=== PATIENT | male | born 1950 | race Caucasian/White ===

== ENCOUNTER 2016-06-22 14:40 | Inpatient (IN) | payer MEDICARE, OTHER ==
[2016-06-22] MEDS ORDERED: ALBUTEROL SULFATE 2.5 MG/3 ML VIAL.NEB IH ONE (14:54)
[2016-06-22 15:24] LABS: Hematocrit 43.8 % (42.0-52.0); Hemoglobin 14.2 gm/dL (13.5-18.0); Mean Cell Volume 92.8 fl (78-100); Mean Corpuscular Hemoglobin 30.1 pg (27-31); Mean Corpuscular Hgb Conc 32.4 g/dl (32-36); Mean Platelet Volume 9.4 fl (6.0-9.5); Neutrophil # 6.7 K/mm3 (1.3-6.0); Neutrophil % 75.3 % (42-75.0); Platelet Count 235 K/mm3 (150-450); Red Blood Count 4.72 M/mm3 (4.7-6.0); Red Cell Distribution Width 15.3 % (11.5-14.0); White Blood Count 8.8 K/mm3 (4.0-10.5)
[2016-06-22] MEDS ORDERED: ALBUTEROL SULFATE 2.5 MG/0.5 ML VIAL.NEB IH ONE (15:40)
[2016-06-22 15:46] LABS: ALT 16 U/L (19-67); AST 16 U/L (0-48); Albumin * 2.7 gm/dl (3.4-5.0); Alkaline Phosphatase * 200 U/L (50-170); Anion Gap 11.2 mmol/L (6.8-13.8); BNP * 1955 pg/mL (5-350); BUN/Creatinine Ratio 15.2 (9.0-21.6); Bilirubin, Total 0.7 mg/dL (0.0-1.1); Blood Urea Nitrogen 12 mg/dL (6-23); Ca. Corrected For Albumin 9.6 mg/dL (8.4-10.2); Calcium * 8.9 mg/dL (7.9-10.9); Carbon Dioxide 33.7 mmol/L (24-32.6); Chloride 104 mmol/L (97-106); Digoxin 1.1 ng/mL (0.5-2.0); Glucose * 98 mg/dL (70-110); Potassium 3.9 mmol/L (3.4-4.6); Sodium 145 mmol/L (132-142); Total Protein 6.7 gm/dL (6.2-8.2)
[2016-06-22 15:47] LABS: Troponin I Less than 0.017 ng/ml (0.00-0.10)
[2016-06-22] MEDS ORDERED: ENOXAPARIN SODIUM 100 MG/ML SYRG SC ONE ×2 (15:51→16:20)
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
[2016-06-22] MEDS ORDERED: FUROSEMIDE 10 MG/ML VIAL IV ONE (16:00)
[2016-06-22] MEDS ORDERED: FUROSEMIDE 10 MG/ML VIAL ONE (16:20)
[2016-06-22] MEDS ORDERED: AZITHROMYCIN 500 MG in DEXTROSE 5 % IN WATER 250 ML IV ONE ×2 (16:30)
[2016-06-22] MEDS ORDERED: ACETAMINOPHEN 325 MG TABLET PO PRN (18:09)
[2016-06-22] MEDS ORDERED: POLYETHYLENE GLYCOL 3350 119 GM BTL PO PRN (18:15)
[2016-06-22] MEDS ORDERED: ERGOCALCIFEROL 50000 UNIT TABLET PO SCH (18:15)
[2016-06-22] MEDS ORDERED: ALBUTEROL SULFATE 60 PUFF INHALER IH PRN (18:27)
[2016-06-22] MEDS ORDERED: oxyCODONE HCL/ACETAMINOPHEN 1 TAB TABLET PO PRN (18:35)
[2016-06-22] MEDS ORDERED: oxyCODONE HCL 5 MG TABLET PO PRN (18:36)
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
[2016-06-22] MEDS ORDERED: FUROSEMIDE 10 MG/ML VIAL IV SCH (21:00)
[2016-06-22] MEDS ORDERED: DIGOXIN 0.125 MG TABLET ONE (21:05)
[2016-06-22] MEDS: METOPROLOL TARTRATE 50 MG TABLET PO SCH (21:14)
[2016-06-22] MEDS: FAMOTIDINE 20 MG TABLET PO SCH (21:14)
[2016-06-22] MEDS: DOCUSATE SODIUM 100 MG CAPSULE PO SCH (21:15)
[2016-06-22] MEDS: SENNOSIDES/DOCUSATE SODIUM 1 TAB TABLET PO SCH (21:15)
[2016-06-22] MEDS: DIGOXIN 0.25 MG TABLET PO SCH (21:15)
[2016-06-22] MEDS: DILTIAZEM HCL 60 MG TABLET PO SCH (21:15)
[2016-06-23] MEDS: DILTIAZEM HCL 60 MG TABLET PO SCH ×2 (05:19→13:55)
[2016-06-23] MEDS ORDERED: ENOXAPARIN SODIUM 40 MG/0.4 ML SYRG SC ONE (05:47)
[2016-06-23 05:54] LABS: Hematocrit 43.2 % (42.0-52.0); Hemoglobin 14.2 gm/dL (13.5-18.0); Mean Cell Volume 92.3 fl (78-100); Mean Corpuscular Hemoglobin 30.3 pg (27-31); Mean Corpuscular Hgb Conc 32.9 g/dl (32-36); Mean Platelet Volume 9.5 fl (6.0-9.5); Neutrophil # 5.5 K/mm3 (1.3-6.0); Neutrophil % 70.4 % (42-75.0); Platelet Count 226 K/mm3 (150-450); Red Blood Count 4.68 M/mm3 (4.7-6.0); Red Cell Distribution Width 15.2 % (11.5-14.0); White Blood Count 7.8 K/mm3 (4.0-10.5)
[2016-06-23] MEDS ORDERED: ENOXAPARIN SODIUM 100 MG/ML SYRG SC SCH (06:00)
[2016-06-23 06:24] LABS: Albumin * 2.7 gm/dl (3.4-5.0); Anion Gap 7.5 mmol/L (6.8-13.8); BUN/Creatinine Ratio 11.9 (9.0-21.6); Bilirubin, Total 0.7 mg/dL (0.0-1.1); Ca. Corrected For Albumin 9.5 mg/dL (8.4-10.2); Calcium * 8.8 mg/dL (7.9-10.9); Carbon Dioxide 38.7 mmol/L (24-32.6); Potassium 3.2 mmol/L (3.4-4.6); T4 Free * 1.32 ng/dL (0.76-1.46); TSH * 0.648 uIU/mL (0.358-3.74); Total Protein 6.6 gm/dL (6.2-8.2)
[2016-06-23] MEDS ORDERED: ALBUTEROL SULFATE 2.5 MG/3 ML VIAL.NEB IH PRN (06:38)
[2016-06-23 07:35] LABS: Prothrombin Time (Patient) 11.1 Seconds (9.4-11.4)
[2016-06-23 08:01] LABS: INR 1.07 INR (0.90-1.10)
[2016-06-23] MEDS ORDERED: FLUTICASONE PROPIONATE 120 SPRAY INHALER NS SCH (09:00)
[2016-06-23] MEDS: TAMSULOSIN HCL 0.4 MG CAP.SR.24H PO SCH (09:36)
[2016-06-23] MEDS: DOCUSATE SODIUM 100 MG CAPSULE PO SCH ×2 (09:36→20:09)
[2016-06-23] MEDS: SENNOSIDES/DOCUSATE SODIUM 1 TAB TABLET PO SCH ×2 (09:37→20:10)
[2016-06-23] MEDS: FUROSEMIDE 10 MG/ML VIAL IV SCH ×2 (09:37→20:09)
[2016-06-23] MEDS: MAGNESIUM HYDROXIDE 30 ML UDC PO SCH (09:37)
[2016-06-23] MEDS: FAMOTIDINE 20 MG TABLET PO SCH ×2 (09:37→20:10)
[2016-06-23] MEDS: METOPROLOL TARTRATE 50 MG TABLET PO SCH ×2 (09:37→19:15)
[2016-06-23] MEDS: AZITHROMYCIN 250 MG TABLET PO SCH (09:38)
[2016-06-23] MEDS: POTASSIUM CHLORIDE 10 MEQ TABLET.SA PO SCH ×2 (10:45→20:09)
[2016-06-23] MEDS: WARFARIN SODIUM 5 MG TABLET PO SCH (16:01)
--- NOTE | 2016-06-23 18:34 | PN ---
Subjective - Date and Time Seen Date: 06/23/16 Time: 18:31 Subjective Narrative: SOB still present, somewhat better. No pain at present. Family brought in fast food today. echo pending. Objective - Review of Systems Generalized/Overall Review: Reports: Malaise EENTM: Reports: No Symptoms Reported Respiratory: Reports: Cough, Shortness of Breath Cardiac: Reports: No Symptoms Reported Abdominal: Reports: Other - incontinent of loose stool today. Genitourinary Symptoms: Reports: No Symptoms Reported Musculoskeletal Complaints: Reports: No Symptoms Reported Neurological: Reports: No Symptoms Reported Skin: Reports: No Symptoms Reported Endocrine: Reports: No Symptoms Reported Misc: All systems neg except as marked - Vitals Vitals: Last Vital Signs Selected Entries 06/23/16 14:17 Temperature 36.7 C Temperature Temporal Artery Source Scan Pulse Rate 93 Respiratory 20 Rate Blood Pressure 139/83 Blood Pressure Sitting Position O2 Sat by Pulse 91 Oximetry Oxygen Delivery Nasal Cannula Method Oxygen Flow 3 Rate - Abnormal Lab Findings Abnormal Lab Findings: Abnormal Lab Results 06/23/16 06/23/16 Range/Units 05:50 05:50 RBC 4.68 L (4.7-6.0) M/mm3 RDW 15.2 H (11.5-14.0) % Lymphocytes % 16.1 L (20-51) % Monocytes % 9.4 H (0.0-9) % Eosinophils % 3.2 H (0.0-3.0) % Lymphocytes # 1.3 L (1.5-3.5) k/mm3 Sodium 144 H (132-142) mmol/L Plasma Sodium 144 H (130-142) mmol/L Potassium 3.2 L (3.4-4.6) mmol/L Carbon Dioxide 38.7 H (24-32.6) mmol/L ALT 15 L (19-67) U/L Alkaline Phosphatase 188 H (50-170) U/L Albumin 2.7 L (3.4-5.0) gm/dl - Exam Constitutional: Present: Alert, Oriented x3, Cooperative, Well developed, Mild distress, Morbidly obese ENT Exam: Present: normal ENT inspection Neck: Present: normal inspection Respiratory: Present: rales Cardiovascular/Chest: Present: no murmur, irregularly irregular Abdomen: Present: Normal bowel sounds, soft, nontender, nondistended, no rebound tenderness, no hepatospenomegaly, no masses, obese Extremity: Present: pedal edema Skin Exam: Present: normal color, warm/dry, no cyanosis Neurologic: Present: alert, oriented x 3 Appearance: Present: appropriate appearance, neat Eye contact: Present: cooperative Assessment/Plan Plan Narrative: Follow Labs. Minimental exam. Lead Project Manager consult. Await echo. IV lasix. Coumadin. Iv antibiotics. Adjust med.s - Problems/Diagnosis (1) Pneumonia Problem: Suspected Qualifiers: Pneumonia type: due to unspecified organism Laterality: unspecified laterality Lung location: lower lobe of lung Qualified Code(s): J18.1 - Lobar pneumonia, unspecified organism (2) ERAN (obstructive sleep apnea) Problem: Chronic (3) Morbid obesity Problem: Chronic Qualifiers: Obesity type: due to excess calories Qualified Code(s): E66.01 - Morbid ( severe) obesity due to excess calories (4) TBI (traumatic brain injury) Problem: Chronic Qualifiers: Encounter type: subsequent encounter (5) Gallstone Problem: Chronic Qualifiers: Cholecystitis presence: without cholecystitis Biliary obstruction: without biliary obstruction Qualified Code(s): K80.20 - Calculus of gallbladder without cholecystitis without obstruction (6) Diabetes mellitus type 2 in obese Problem: Acute (7) Atrial fibrillation Problem: Chronic Qualifiers: Atrial fibrillation type: chronic Qualified Code(s): I48.2 - Chronic atrial fibrillation (8) CHF (congestive heart failure) Problem: Acute Qualifiers: Congestive heart failure type: unspecified congestive heart failure type Congestive heart failure chronicity: acute on chronic Qualified Code(s): I50.9 - Heart failure, unspecified (9) Dyspnea Problem: Acute Qualifiers: Dyspnea type: shortness of breath Qualified Code(s): R06.02 - Shortness of breath (10) Hypoxemia Problem: Acute (11) Pleural condition, unspecified Problem: Acute
[2016-06-23] MEDS: ENOXAPARIN SODIUM SC SCH ×2 (19:13)
[2016-06-23] MEDS: DIGOXIN 0.25 MG TABLET PO SCH (20:09)
[2016-06-24] MEDS: ENOXAPARIN SODIUM SC SCH ×4 (05:03→18:30)
[2016-06-24 06:24] LABS: Anion Gap 7.6 mmol/L (6.8-13.8); BUN/Creatinine Ratio 10.8 (9.0-21.6); Calcium * 8.9 mg/dL (7.9-10.9); Carbon Dioxide 39.5 mmol/L (24-32.6); Estimated Creat Clear 100.3; Hemoglobin 15.2 gm/dL (13.5-18.0); Mean Cell Volume 93.6 fl (78-100); Mean Corpuscular Hemoglobin 29.6 pg (27-31); Mean Corpuscular Hgb Conc 31.7 g/dl (32-36); Mean Platelet Volume 9.8 fl (6.0-9.5); Neutrophil # 5.2 K/mm3 (1.3-6.0); Neutrophil % 68.2 % (42-75.0); Platelet Count 231 K/mm3 (150-450); Potassium 3.1 mmol/L (3.4-4.6); Prothrombin Time (Patient) 12.2 Seconds (9.4-11.4); Red Blood Count 5.13 M/mm3 (4.7-6.0); White Blood Count 7.6 K/mm3 (4.0-10.5)
[2016-06-24 06:27] LABS: INR 1.17 INR (0.90-1.10)
[2016-06-24] MEDS: METOPROLOL TARTRATE 50 MG TABLET PO SCH (07:10)
[2016-06-24] MEDS ORDERED: POLYETHYLENE GLYCOL 3350 119 GM BTL PO PRN (09:00)
[2016-06-24] MEDS: DOCUSATE SODIUM 100 MG CAPSULE PO SCH ×2 (10:04→20:15)
[2016-06-24] MEDS: TAMSULOSIN HCL 0.4 MG CAP.SR.24H PO SCH (10:05)
[2016-06-24] MEDS: POTASSIUM CHLORIDE 20 MEQ TABLET.SA PO SCH ×2 (10:05→20:15)
[2016-06-24] MEDS: FLUTICASONE PROPIONATE 120 SPRAY INHALER NS SCH (10:05)
[2016-06-24] MEDS: FAMOTIDINE 20 MG TABLET PO SCH ×2 (10:06→20:15)
[2016-06-24] MEDS: MAGNESIUM HYDROXIDE 30 ML UDC PO SCH (10:06)
[2016-06-24] MEDS: FUROSEMIDE 10 MG/ML VIAL IV SCH (10:06)
[2016-06-24] MEDS: AZITHROMYCIN 250 MG TABLET PO SCH (10:07)
[2016-06-24] MEDS: SENNOSIDES/DOCUSATE SODIUM 1 TAB TABLET PO SCH ×2 (10:07→20:15)
[2016-06-24] MEDS ORDERED: diphenhydrAMINE HCL 25 MG CAPSULE PO PRN (10:40)
[2016-06-24] MEDS: diphenhydrAMINE HCL 50 MG CAPSULE PO PRN ×2 (10:48→23:59)
[2016-06-24] MEDS ORDERED: HYDROcodone/ACETAMINOPHEN 1 EACH TABLET PO PRN (10:55)
--- NOTE | 2016-06-24 11:28 | PN ---
Subjective - Date and Time Seen Date: 06/24/16 Time: 11:23 Subjective Narrative: SOB still present, somewhat better. No pain at present. Says he briefly passes out almost every time his head approaches the pillow when lying down. Vague and confusing historian. Objective - Review of Systems Generalized/Overall Review: Reports: Malaise EENTM: Reports: No Symptoms Reported Respiratory: Reports: Shortness of Breath Cardiac: Reports: No Symptoms Reported Abdominal: Reports: No Symptoms Reported Genitourinary Symptoms: Reports: No Symptoms Reported Musculoskeletal Complaints: Reports: No Symptoms Reported Neurological: Reports: Pre-existing Deficit Skin: Reports: No Symptoms Reported Endocrine: Reports: No Symptoms Reported Misc: All systems neg except as marked - Vitals Vitals: Last Vital Signs Selected Entries 06/24/16 06/24/16 06/24/16 06:22 07:10 10:06 Temperature 36.6 C Temperature Temporal Artery Source Scan Pulse Rate 70 70 70 Respiratory 18 Rate Blood Pressure 128/72 128/72 128/72 Blood Pressure Supine Position O2 Sat by Pulse 93 Oximetry Oxygen Delivery Bi-pap Method - Abnormal Lab Findings Abnormal Lab Findings: Abnormal Lab Results 06/24/16 06/24/16 06/24/16 Range/Units 05:40 05:40 05:40 MCHC 31.7 L (32-36) g/dl RDW 15.0 H (11.5-14.0) % MPV 9.8 H (6.0-9.5) fl Lymphocytes % 17.6 L (20-51) % Eosinophils % 4.5 H (0.0-3.0) % Lymphocytes # 1.3 L (1.5-3.5) k/mm3 PT 12.2 H (9.4-11.4) Seconds INR (Anticoag Therapy) 1.17 H (0.90-1.10) INR Sodium 144 H (132-142) mmol/L Plasma Sodium 144 H (130-142) mmol/L Potassium 3.1 L (3.4-4.6) mmol/L Carbon Dioxide 39.5 H (24-32.6) mmol/L - Exam Constitutional: Present: Alert, Cooperative, Well developed, No distress, Obese ENT Exam: Present: normal ENT inspection Neck: Present: normal inspection Respiratory: Present: no respiratory distress, rales Cardiovascular/Chest: Present: no murmur, irregularly irregular Abdomen: Present: Normal bowel sounds, soft, nontender, nondistended, no rebound tenderness, no hepatospenomegaly, no masses, obese Extremity: Present: pedal edema Skin Exam: Present: no cyanosis, cool/dry Neurologic: Present: alert Appearance: Present: appropriate appearance, neat Eye contact: Present: cooperative Assessment/Plan Plan Narrative: PT OT await echo. Head CT repeat. Mini mental status repeat. IV lasix. monitor electrolytes. - Problems/Diagnosis (1) Pneumonia Problem: Suspected Qualifiers: Pneumonia type: due to unspecified organism Laterality: unspecified laterality Lung location: lower lobe of lung Qualified Code(s): J18.1 - Lobar pneumonia, unspecified organism (2) ERAN (obstructive sleep apnea) Problem: Chronic (3) Morbid obesity Problem: Chronic Qualifiers: Obesity type: due to excess calories Qualified Code(s): E66.01 - Morbid ( severe) obesity due to excess calories (4) TBI (traumatic brain injury) Problem: Chronic Qualifiers: Encounter type: subsequent encounter (5) Gallstone Problem: Chronic Qualifiers: Cholecystitis presence: without cholecystitis Biliary obstruction: without biliary obstruction Qualified Code(s): K80.20 - Calculus of gallbladder without cholecystitis without obstruction (6) Diabetes mellitus type 2 in obese Problem: Acute (7) Atrial fibrillation Problem: Chronic Qualifiers: Atrial fibrillation type: chronic Qualified Code(s): I48.2 - Chronic atrial fibrillation (8) CHF (congestive heart failure) Problem: Acute Qualifiers: Congestive heart failure type: unspecified congestive heart failure type Congestive heart failure chronicity: acute on chronic Qualified Code(s): I50.9 - Heart failure, unspecified (9) Dyspnea Problem: Acute Qualifiers: Dyspnea type: shortness of breath Qualified Code(s): R06.02 - Shortness of breath (10) Hypoxemia Problem: Acute (11) Pleural condition, unspecified Problem: Acute (12) Dementia Problem: Acute Qualifiers: Dementia behavioral disturbance: without behavioral disturbance
[2016-06-24] MEDS ORDERED: FUROSEMIDE 10 MG/ML VIAL IV SCH (11:30)
--- NOTE | 2016-06-24 14:45 | ECHO ---
This report is available in the EMR
[2016-06-24] MEDS: WARFARIN SODIUM 5 MG TABLET PO SCH (16:31)
[2016-06-24] MEDS ORDERED: ERGOCALCIFEROL 50000 UNIT TABLET PO SCH (18:00)
[2016-06-24] MEDS: METOPROLOL TARTRATE 100 MG TABLET PO SCH (18:36)
[2016-06-24] MEDS: DIGOXIN 0.25 MG TABLET PO SCH (20:15)
[2016-06-24] MEDS: HYDROcodone/ACETAMINOPHEN 1 EACH TABLET PO PRN (20:19)
[2016-06-25] MEDS: ENOXAPARIN SODIUM SC SCH ×4 (05:04→17:23)
[2016-06-25 06:23] LABS: Hematocrit 49.2 % (42.0-52.0); Hemoglobin 15.8 gm/dL (13.5-18.0); Mean Cell Volume 92.8 fl (78-100); Mean Corpuscular Hemoglobin 29.8 pg (27-31); Mean Corpuscular Hgb Conc 32.1 g/dl (32-36); Mean Platelet Volume 9.3 fl (6.0-9.5); Neutrophil # 4.5 K/mm3 (1.3-6.0); Neutrophil % 65.2 % (42-75.0); Platelet Count 229 K/mm3 (150-450); Red Cell Distribution Width 14.8 % (11.5-14.0); White Blood Count 6.9 K/mm3 (4.0-10.5)
[2016-06-25 06:24] LABS: Prothrombin Time (Patient) 14.3 Seconds (9.4-11.4)
[2016-06-25 06:25] LABS: INR 1.38 INR (0.90-1.10)
[2016-06-25 06:27] LABS: Anion Gap 8.9 mmol/L (6.8-13.8); BUN/Creatinine Ratio 12.5 (9.0-21.6); Carbon Dioxide 37.4 mmol/L (24-32.6); Estimated Creat Clear 94.6; Potassium 3.3 mmol/L (3.4-4.6)
[2016-06-25] MEDS: METOPROLOL TARTRATE 100 MG TABLET PO SCH ×2 (06:46→18:18)
[2016-06-25] MEDS: DOCUSATE SODIUM 100 MG CAPSULE PO SCH ×2 (08:48→20:27)
[2016-06-25] MEDS: FLUTICASONE PROPIONATE 120 SPRAY INHALER NS SCH (08:48)
[2016-06-25] MEDS: POTASSIUM CHLORIDE 20 MEQ TABLET.SA PO SCH ×2 (08:49→20:27)
[2016-06-25] MEDS: AZITHROMYCIN 250 MG TABLET PO SCH (08:50)
[2016-06-25] MEDS: TAMSULOSIN HCL 0.4 MG CAP.SR.24H PO SCH (08:50)
[2016-06-25] MEDS: FAMOTIDINE 20 MG TABLET PO SCH ×2 (08:50→20:27)
[2016-06-25] MEDS: MAGNESIUM HYDROXIDE 30 ML UDC PO SCH (08:51)
[2016-06-25] MEDS: SENNOSIDES/DOCUSATE SODIUM 1 TAB TABLET PO SCH ×2 (08:52→20:27)
[2016-06-25] MEDS: FUROSEMIDE 10 MG/ML VIAL IV SCH (08:55)
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
[2016-06-25] MEDS: WARFARIN SODIUM 5 MG TABLET PO SCH (16:56)
[2016-06-25] MEDS ORDERED: MECLIZINE HCL 25 MG TABLET PO PRN (18:48)
[2016-06-25] MEDS: HYDROcodone/ACETAMINOPHEN 1 EACH TABLET PO PRN (20:26)
[2016-06-25] MEDS: DIGOXIN 0.25 MG TABLET PO SCH (20:27)
[2016-06-26 04:31] LABS: Anion Gap 8.3 mmol/L (6.8-13.8); BUN/Creatinine Ratio 16.7 (9.0-21.6); Calcium * 8.9 mg/dL (7.9-10.9); Carbon Dioxide 38.2 mmol/L (24-32.6); Estimated Creat Clear 92.5; Potassium 3.5 mmol/L (3.4-4.6)
[2016-06-26 04:33] LABS: Prothrombin Time (Patient) 16.7 Seconds (9.4-11.4)
[2016-06-26 04:36] LABS: INR 1.61 INR (0.90-1.10)
[2016-06-26] MEDS: ENOXAPARIN SODIUM SC SCH ×4 (05:04→17:14)
[2016-06-26] MEDS: METOPROLOL TARTRATE 100 MG TABLET PO SCH ×2 (06:21→18:28)
[2016-06-26] MEDS: SENNOSIDES/DOCUSATE SODIUM 1 TAB TABLET PO SCH ×2 (08:35→20:01)
[2016-06-26] MEDS: DOCUSATE SODIUM 100 MG CAPSULE PO SCH ×2 (08:35→20:00)
[2016-06-26] MEDS: MAGNESIUM HYDROXIDE 30 ML UDC PO SCH (08:35)
[2016-06-26] MEDS: FLUTICASONE PROPIONATE 120 SPRAY INHALER NS SCH (08:38)
[2016-06-26] MEDS: POTASSIUM CHLORIDE 20 MEQ TABLET.SA PO SCH ×2 (08:38→20:01)
[2016-06-26] MEDS: TAMSULOSIN HCL 0.4 MG CAP.SR.24H PO SCH (08:39)
[2016-06-26] MEDS: FUROSEMIDE 10 MG/ML VIAL IV SCH (08:39)
[2016-06-26] MEDS: FAMOTIDINE 20 MG TABLET PO SCH ×2 (08:39→20:00)
[2016-06-26] MEDS: AZITHROMYCIN 250 MG TABLET PO SCH (08:39)
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
[2016-06-26] MEDS: WARFARIN SODIUM 5 MG TABLET PO SCH (17:13)
[2016-06-26] MEDS: HYDROcodone/ACETAMINOPHEN 1 EACH TABLET PO PRN (19:09)
[2016-06-26] MEDS: DIGOXIN 0.25 MG TABLET PO SCH (20:00)
[2016-06-27] MEDS: HYDROcodone/ACETAMINOPHEN 1 EACH TABLET PO PRN ×2 (01:38→18:01)
[2016-06-27] MEDS: ENOXAPARIN SODIUM SC SCH ×4 (05:12→17:57)
[2016-06-27 06:02] LABS: Prothrombin Time (Patient) 22.3 Seconds (9.4-11.4)
[2016-06-27 06:13] LABS: INR 2.14 INR (0.90-1.10)
[2016-06-27] MEDS: METOPROLOL TARTRATE 100 MG TABLET PO SCH ×2 (07:26→18:08)
[2016-06-27] MEDS: DOCUSATE SODIUM 100 MG CAPSULE PO SCH ×2 (08:35→21:18)
[2016-06-27] MEDS: MAGNESIUM HYDROXIDE 30 ML UDC PO SCH (08:36)
[2016-06-27] MEDS: FLUTICASONE PROPIONATE 120 SPRAY INHALER NS SCH (08:36)
[2016-06-27] MEDS: SENNOSIDES/DOCUSATE SODIUM 1 TAB TABLET PO SCH ×2 (08:36→21:19)
[2016-06-27] MEDS: TAMSULOSIN HCL 0.4 MG CAP.SR.24H PO SCH (08:37)
[2016-06-27] MEDS: FAMOTIDINE 20 MG TABLET PO SCH ×2 (08:37→21:18)
[2016-06-27] MEDS: POTASSIUM CHLORIDE 20 MEQ TABLET.SA PO SCH ×2 (08:37→21:18)
[2016-06-27] MEDS: FUROSEMIDE 10 MG/ML VIAL IV SCH (08:50)
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
--- NOTE | 2016-06-27 14:09 | PN ---
Progess Note - Interim Narrative: 06/27/16 14:06 Actually, BMI was 40.1 on ADMISSION, so he was in fact morbidly obese by definition on admission. He has since lost 11.5 kg since here, so he is now 129.5 kg and is no longer morbidly obese, just obese.
[2016-06-27] MEDS: WARFARIN SODIUM 5 MG TABLET PO SCH (16:49)
[2016-06-27] MEDS: DIGOXIN 0.25 MG TABLET PO SCH (21:19)
[2016-06-28] MEDS: ENOXAPARIN SODIUM SC SCH ×2 (05:49)
[2016-06-28 06:13] LABS: Prothrombin Time (Patient) 21.4 Seconds (9.4-11.4)
[2016-06-28 06:14] LABS: INR 2.06 INR (0.90-1.10)
[2016-06-28] MEDS: METOPROLOL TARTRATE 100 MG TABLET PO SCH (08:00)
[2016-06-28] MEDS: DOCUSATE SODIUM 100 MG CAPSULE PO SCH (09:24)
[2016-06-28] MEDS: SENNOSIDES/DOCUSATE SODIUM 1 TAB TABLET PO SCH (09:26)
[2016-06-28] MEDS: MAGNESIUM HYDROXIDE 30 ML UDC PO SCH (09:27)
[2016-06-28] MEDS: FAMOTIDINE 20 MG TABLET PO SCH (09:30)
[2016-06-28] MEDS: POTASSIUM CHLORIDE 20 MEQ TABLET.SA PO SCH (09:30)
[2016-06-28] MEDS: FLUTICASONE PROPIONATE 120 SPRAY INHALER NS SCH (09:30)
[2016-06-28] MEDS: TAMSULOSIN HCL 0.4 MG CAP.SR.24H PO SCH (09:30)
[2016-06-28] MEDS: FUROSEMIDE 10 MG/ML VIAL IV SCH (09:30)
[2016-06-28 13:16] LABS: Anion Gap 8.3 mmol/L (6.8-13.8); Carbon Dioxide 37.8 mmol/L (24-32.6); Estimated Creat Clear 93.5; Potassium 4.1 mmol/L (3.4-4.6)
[2016-06-28 15:40] VITALS: BP 144/86
[2016-06-28] MEDS: WARFARIN SODIUM 5 MG TABLET PO SCH (17:37)
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
== END 2016-06-28 20:28 | disposition home or self-care (01) | DRG 291 ==
LOC: ER 14:40 → MS 18:02
PROVIDERS: ADMIT Allergy & Immunology; ATTEND Allergy & Immunology
PROC: 4A033R1 Measurement of Arterial Saturation, Peripheral, Percutaneous Approach (ICD-10-PCS; principal; 2016-06-22)
DX: I50.33 Acute on chronic diastolic (congestive) heart failure (principal); J18.1 Lobar pneumonia, unspecified organism; Z68.41 Body mass index [BMI] 40.0-44.9, adult; J44.0 Chronic obstructive pulmonary disease with (acute) lower respiratory infection; J96.11 Chronic respiratory failure with hypoxia; S06.300D Unspecified focal traumatic brain injury without loss of consciousness, subsequent encounter; V29.9XXD Motorcycle rider (driver) (passenger) injured in unspecified traffic accident, subsequent encounter; E11.9 Type 2 diabetes mellitus without complications; I48.2 Chronic atrial fibrillation; E66.01 Morbid (severe) obesity due to excess calories; Z87.891 Personal history of nicotine dependence